=== PATIENT | male | born 1995 | race Caucasian/White ===

== ENCOUNTER 2017-04-05 23:51 | Emergency (ER) | payer BC ==
[~2017-04-05] VITALS: Ht 188 cm; Wt 84.4 kg
[2017-04-05 23:53] VITALS: Ht 188 cm; Wt 84.4 kg
[2017-04-06] MEDS ORDERED: IBUP-1050 PO (00:17)
[2017-04-06] MEDS ORDERED: ACET-1256 PO (00:17)
[2017-04-06] MEDS ORDERED: KETOROLAC TROMETHAMINE 30 MG/ML VIAL IV STA (00:19)
[2017-04-06] MEDS ORDERED: ACETAMINOPHEN IV 100 ML IV ONE (00:30)
[2017-04-06] MEDS ORDERED: SODIUM CHLORIDE 0.9% 1000ML 1,000 ML, SODIUM CHLORIDE 0.9% 1000ML 1,000 ML IV ONE (00:30)
[2017-04-06 01:07] LABS: BASO % 0.1 %; BASO ABS # 0.01 K/uL (0-0.2); COMPLETE YES; EOS % 2.2 %; HEMATOCRIT 41.9 % (42-52); IG% 0.3 %; LYMPH % 16.9 %; LYMPH ABS # 1.33 K/uL (1.2-3.4); MEAN CELL VOLUME 87.3 fL (80-100); MEAN CORPUSCULAR HEMOGLOBIN 29.6 pg (25-34); MEAN CORPUSCULAR HGB CONC 33.9 g/dl (32-36); MEAN PLATELET VOLUME 9.5 fL (7.4-10.4); MONO % 10.5 %; PLATELET COUNT 199 K/uL (130-400); WHITE BLOOD COUNT 7.87 K/uL (4.8-10.8)
[2017-04-06 01:31] LABS: URINE APPEARANCE CLOUDY (CLEAR); URINE BILIRUBIN NEG (NEG); URINE COLOR YELLOW; URINE NITRITE NEG (NEG); URINE PH 7.5 (4.5-7.5); URINE SPECIFIC GRAVITY 1.025 (1.000-1.030); UROBILINOGEN NEG (NEG); ZZUR CULT IF INDIC CLEAN CATCH NO
[2017-04-06 01:36] LABS: BUN/CREATININE RATIO 9.3 (10-20); CALCIUM 8.5 mg/dl (8.5-10.1); POTASSIUM 3.4 mmol/L (3.5-5.1)
[2017-04-06 01:38] LABS: MANUAL MICROSCOPIC REQUIRED? NO; REVIEW REQ? NO; SULFASALICYLIC ACID NEG (NEG)
[2017-04-06 01:39] LABS: ALB/GLOB RATIO 0.9 (0.9-2)
[2017-04-06 02:17] LABS: LYME DISEASE AB IGG NEG (NEG)
[2017-04-06 02:25] LABS: LYME DISEASE AB IGM POS (NEG)
[2017-04-06] MEDS ORDERED: CEFTRIAXONE SOD INJ 1 GM ADDVIAL IV STA (03:42)
[2017-04-06] MEDS ORDERED: DOXY1TAB6 PO (03:49)
[2017-04-06 03:54] VITALS: TEMP 37.4
[2017-04-06 04:30] VITALS: BP 106/66; PULSE 92; O2SAT 100
--- NOTE | 2017-04-06 06:53 | EMERGENCY ROOM VISIT NOTE ---
History First contact with patient: 00:10 Chief Complaint: FEVER Stated Complaint: FEVER, HEADACHE/MIGRAINE, BUMPS ON BODY, NECK PAIN History of Present Illness The patient is a 21 year old male who presents to the Emergency Room with complaints of fever for the past 5 days. The patient states that his temperature has been as high as 102F at home. The fever has been waxing and waning, and he has been taking [id number] ibuprofen and Tylenol with some improvement of the symptoms. He states that 2 days ago he had a headache and stiff neck, however this has significantly improved from then until now. The patient developed a rash this evening, prompting him to come to the emergency department. The patient is considered usually healthy and he does not take medication on a regular basis. He rates his discomfort a 6/10 that does not radiate. He does not have chest pain, chest tightness, shortness of breath, or abdominal pain. No difficulty eating, drinking, or using the bathroom. Review of Systems More than 10 systems were reviewed and otherwise negative with the exception of history of present illness. Past Medical/Surgical History No chronic medical disease Family History No pertinent family history Social History Smoking Status: Never Smoker Occupation Status: [employer] student Current/Historical Medications Scheduled Doxycycline Hyclate (Doxycycline Hyclate), 1 TAB PO BID Scheduled PRN Acetaminophen (Tylenol), 1,000 MG PO Q6 PRN for Pain or Fever Ibuprofen (Advil), 400 MG PO Q6 PRN for Pain or Fever Physical Exam Vital Signs Date Time Temp Pulse Resp B/P (MAP) Pulse Ox O2 Delivery O2 Flow Rate FiO2 04/06/17 04:30 92 16 106/66 100 04/06/17 03:54 37.4 100 16 115/70 99 Room Air 04/06/17 02:56 86 98 04/06/17 02:41 83 99 04/06/17 02:30 103/63 04/06/17 02:26 86 100 04/06/17 02:26 37.7 04/06/17 02:21 90 99 04/06/17 02:06 88 98 04/06/17 02:00 106/61 04/06/17 01:51 90 100 04/06/17 01:36 88 100 04/06/17 01:30 105/66 04/06/17 01:21 93 98 04/06/17 01:06 90 99 04/06/17 01:02 107/65 04/06/17 00:51 94 100 04/06/17 00:50 109/64 04/05/17 23:53 37.8 114 18 124/70 98 Pain Rating (0-10): 0 Physical Exam VITALS: Vitals are noted on the nurse's note and reviewed by myself. Vital signs with low-grade fever GENERAL: Well-developed, well-nourished, white male, who is in no acute distress and resting comfortably. Patient is cooperative with the examination. HEAD: Normocephalic atraumatic. EARS: External ear normal. External auditory canals clear, tympanic membranes pearly lamb without erythema or effusion bilaterally. EYES: Pupils equal round and reactive to light and accommodation. Conjunctivae without injection, sclerae without icterus. Extraocular movements intact. NOSE: Patent, turbinates without inflammation or discharge. MOUTH: Mucous membranes moist. Tonsils are not enlarged. Pharynx without erythema, blood, or exudate. Uvula midline. Airway patent. NECK: Supple without nuchal rigidity. No lymphadenopathy. No thyromegaly. Cervical spine is nontender. No meningismus. HEART: Regular rate and rhythm without murmurs gallops or rubs. LUNGS: Clear to auscultation bilaterally without wheezes, rales or rhonchi. No retractions or accessory muscle use. ABDOMEN: Positive normal bowel sounds x 4. Soft, nontender, without masses or organomegaly. No guarding or rebound tenderness. MUSCULOSKELETAL: No muscle atrophy, erythema, or edema noted. Full range of motion without joint tenderness in all extremities. No tenderness to palpation. Normal gait. Strength 5/5 throughout. NEURO: Patient was alert and oriented to person place and time. CN II through XII grossly intact. Deep tendon reflexes 2+ throughout. No focal neurological deficits SKIN: The skin was with rash appreciated primarily along the proximal lower extremities and anterior chest the rash is blanching and nontender. It is not purpuric or petechial. Medical Decision & Procedures Laboratory Results 04/06/17 00:40 Red Blood Count 4.80, Mean Corpuscular Volume 87.3, Mean Corpuscular Hemoglobin 29.6, Mean Corpuscular Hemoglobin Concent 33.9, Mean Platelet Volume 9.5, Neutrophils (%) (Auto) 70.0, Lymphocytes (%) (Auto) 16.9, Monocytes (%) (Auto) 10.5, Eosinophils (%) (Auto) 2.2, Basophils (%) (Auto) 0.1, Neutrophils # (Auto ) 5.51, Lymphocytes # (Auto) 1.33, Monocytes # (Auto) 0.83, Eosinophils # (Auto ) 0.17, Basophils # (Auto) 0.01 04/06/17 00:40 Test 04/06/17 00:40 04/06/17 00:53 04/06/17 01:02 04/06/17 01:05 White Blood Count 7.87 K/uL (4.8-10.8) Red Blood Count 4.80 M/uL (4.7-6.1) Hemoglobin 14.2 g/dL (14.0-18.0) Hematocrit 41.9 % (42-52) Mean Corpuscular Volume 87.3 fL (80-100) Mean Corpuscular Hemoglobin 29.6 pg (25-34) Mean Corpuscular Hemoglobin Concent 33.9 g/dl (32-36) Platelet Count 199 K/uL (130-400) Mean Platelet Volume 9.5 fL (7.4-10.4) Neutrophils (%) (Auto) 70.0 % Lymphocytes (%) (Auto) 16.9 % Monocytes (%) (Auto) 10.5 % Eosinophils (%) (Auto) 2.2 % Basophils (%) (Auto) 0.1 % Neutrophils # (Auto) 5.51 K/uL (1.4-6.5) Lymphocytes # (Auto) 1.33 K/uL (1.2-3.4) Monocytes # (Auto) 0.83 K/uL (0.11-0.59) Eosinophils # (Auto) 0.17 K/uL (0-0.5) Basophils # (Auto) 0.01 K/uL (0-0.2) RDW Standard Deviation 39.1 fL (36.4-46.3) RDW Coefficient of Variation 12.1 % (11.5-14.5) Immature Granulocyte % (Auto) 0.3 % Immature Granulocyte # (Auto) 0.02 K/uL (0.00-0.02) Anion Gap 5.0 mmol/L (3-11) Est Creatinine Clear Calc Drug Dose 133.6 ml/min Estimated GFR () 122.4 Estimated GFR (Non- 105.6 BUN/Creatinine Ratio 9.3 (10-20) Calcium Level 8.5 mg/dl (8.5-10.1) Total Bilirubin 0.4 mg/dl (0.2-1) Aspartate Amino Transf (AST/SGOT) 28 U/L (15-37) Alanine Aminotransferase (ALT/SGPT) 23 U/L (12-78) Alkaline Phosphatase 125 U/L (45-117) Total Protein 7.0 gm/dl (6.4-8.2) Albumin 3.3 gm/dl (3.4-5.0) Globulin 3.7 gm/dl (2.5-4.0) Albumin/Globulin Ratio 0.9 (0.9-2) Lyme Disease IgG Antibody NEG (NEG) Monoscreen NEG (NEG) Bedside Lactic Acid Venous 1.13 mmol/L (0.90-1.70) Urine Color YELLOW Urine Appearance CLOUDY (CLEAR) Urine pH 7.5 (4.5-7.5) Urine Specific [place] 1.025 (1.000-1.030) Urine Protein NEG (NEG) Urine Glucose (UA) NEG (NEG) Urine Ketones TRACE (NEG) Urine Occult Blood TRACE (NEG) Urine Nitrite NEG (NEG) Urine Bilirubin NEG (NEG) Urine Urobilinogen NEG (NEG) Urine Leukocyte Esterase NEG (NEG) Urine WBC (Auto) 0 /hpf (0-5) Urine RBC (Auto) 5-10 /hpf (0-4) Urine Hyaline Casts (Auto) 1-5 /lpf (0-5) Urine Epithelial Cells (Auto) 10-20 /lpf (0-5) Urine Bacteria (Auto) NEG (NEG) Influenza Type A Antigen Neg for Influ A (NEG) Influenza Type B Antigen Neg for Influ B (NEG) Medications Administered Medications (Trade) Dose Ordered Sig/Mode Route Start Time Stop Time Status Last Admin Dose Admin Sodium Chloride/ Sodium Chloride 2,000 ml @ 999 mls/hr Q2H1M ONCE IV 04/06/17 00:30 04/06/17 02:30 DC 04/06/17 01:28 999 MLS/HR Acetaminophen 100 ml @ 400 mls/hr NOW ONCE IV 04/06/17 00:30 04/06/17 00:44 DC 04/06/17 01:35 400 MLS/HR Ketorolac Tromethamine (Toradol Inj) 30 mg NOW STAT IV 04/06/17 00:19 04/06/17 00:23 DC 04/06/17 01:32 30 MG Ceftriaxone Sodium (Rocephin Inj) 2 gm NOW STAT IV 04/06/17 03:42 04/06/17 03:43 DC 04/06/17 03:51 2 GM ED Course Physical exam and history were performed. Nursing notes, EMR, and Medication List were personally reviewed. Patient appears to have fever for the past 5 days. He does report having a fever and stiff neck 2 days ago that has improved. He developed a rash today. IV access was established and labs were obtained. Strep and influenza swabs were performed. The patient was hydrated with 2 L of normal saline and given IV Tylenol and IV Toradol as above. Chest x-ray was additionally performed. Blood cultures were drawn. The patient's blood work is as above and was reviewed. He does not have a significant elevated white blood cell count, gross anemia, bandemia, or significant electrolyte imbalance. Lipase and transaminases are nondiagnostic. Monospot is negative. Rapid strep is negative with culture pending. His lactic acid is negative. The influenza swabs were negative. Chest x-ray does not show acute process. The patient's IgM Lyme screen was positive, and this was felt to correlate with the patient's symptoms. I discussed options of care at length with the patient. We had a very lengthy discussion regarding the option of a lumbar puncture to rule in or rule out Lyme meningitis. The patient and I spent greater than 25 minutes in this conversation, and he ultimately discussed this option with his parents. After reviewing the risks and benefits of having a lumbar puncture versus not performing the procedure, the patient elected against having a lumbar puncture at this time. The patient understands that his symptoms worsen this could be a reasonable test to perform in the future. The patient was given IV Rocephin here in the department. He will otherwise be discharged home with a course of doxycycline to treat Lyme disease. The patient may use [id number] analgesics for pain and fever control. He will need very close follow-up with [facility], preferably in the next 1-2 days. He was certainly invited back to the ER anytime and voiced understanding of this plan. The chart was completed utilizing [email or web address] Speech Voice Recognition Software. Grammatical errors, random word insertions, pronoun errors, and incomplete sentences are an occasional consequence of this system due to software limitations, ambient noise, and hardware issues. Any formal questions or concerns about the content, text, or information contained within the body of this dictation should be directly addressed to the provider for clarification. . Medical Decision Differential diagnosis: Etiologies such as viral syndrome, otitis, pharyngitis, pneumonia, influenza, meningitis, urinary tract infection, sepsis, bacteremia, as well as others were entertained. Impression Primary Impression: Acute Lyme disease Additional Impression: Fever Departure Information Dispostion Home / Self-Care Condition GOOD Prescriptions Doxycycline Hyclate (DOXYCYCLINE HYCLATE) 100 Mg Tab 1 TAB PO BID for 21 Days, #42 TAB Prov: Alvaro Brooke PA-C 04/06/17 Forms HOME CARE DOCUMENTATION FORM, IMPORTANT VISIT INFORMATION Patient Instructions My [facility] Additional Instructions You were seen and evaluated today on an emergency basis only. This is not a substitute for, or an effort to provide, complete comprehensive medical care. It is not possible to recognize and treat all injuries or illnesses in a single emergency department visit. For this reason it is recommended that you followup with [facility] this week for ongoing care and evaluation. For baseline pain relief you may alternate ibuprofen and acetaminophen every 4 hours for pain control. Take 600 mg ibuprofen (Advil) and then 4 hours later take 1000 mg acetaminophen (Tylenol). Do not take more than 3000 mg acetaminophen in a single day. Drink plenty of fluids and remain well hydrated. Take doxycycline 100 mg twice daily for the next 21 days. Take this medication with food. Avoid exposure to sun as he will likely sunburn while taking this medication. You are welcome to return to the emergency department anytime with new, worsening, or concerning symptoms. Problem Qualifiers
--- NOTE | 2017-04-06 06:54 | DIAGNOSTIC IMAGING REPORT ---
CHEST 2 VIEWS ROUTINE CLINICAL HISTORY: Fever COMPARISON STUDY: No previous studies for comparison. FINDINGS: Lung volumes are normal. Lungs are clear. There is no pneumothorax or pleural effusion. Cardiac size is normal. Mediastinal contours are normal. There is no evidence of pulmonary edema. IMPRESSION: No acute cardiopulmonary findings. Electronically signed by: Souleymane Castañeda M.D. 04/06/2017 6:52 AM Dictated Date/Time: 04/06/2017 6:52 AM
[2017-04-09 17:19] LABS: 18KDIGG BAND NONREACTIVE (NONREACTIVE); 23KDIGG BAND REACTIVE (NONREACTIVE); 23KDIGM BAND REACTIVE (NONREACTIVE); 28KDIGG BAND NONREACTIVE (NONREACTIVE); 30KDIGG BAND NONREACTIVE (NONREACTIVE); 39KDIGG BAND NONREACTIVE (NONREACTIVE); 39KDIGM BAND NONREACTIVE (NONREACTIVE); 41KDIGG BAND NONREACTIVE (NONREACTIVE); 41KDIGM BAND REACTIVE (NONREACTIVE); 45KDIGG BAND NONREACTIVE (NONREACTIVE); 58KDIGG BAND NONREACTIVE (NONREACTIVE); 66KDIGG BAND NONREACTIVE (NONREACTIVE); 93KDIGG BAND NONREACTIVE (NONREACTIVE)
== END 2017-04-06 04:34 | disposition home or self-care (01) ==
LOC: C.EDB 23:54 → C.EDA 04-06 04:34
DX: A69.20 Lyme disease, unspecified (principal); R50.9 Fever, unspecified